=== PATIENT | male | born 1935 | race Caucasian/White ===

== ENCOUNTER 2018-10-11 10:24 | Inpatient (IN) | payer MEDICARE | END 2018-10-18 14:10 | LOC: MED 3N 10-14 17:40 → SSTAY O 10:24 → ICU 2S 10-12 10:15 → MED 3N 14:44 | PROC: 0210093 Bypass Coronary Artery, One Artery from Coronary Artery with Autologous Venous Tissue, Open Approach (ICD-10-PCS; principal; 2018-10-12 07:02) | PROC: 02RF08Z Replacement of Aortic Valve with Zooplastic Tissue, Open Approach (ICD-10-PCS; 2018-10-12 07:02) | PROC: 4A023N7 Measurement of Cardiac Sampling and Pressure, Left Heart, Percutaneous Approach (ICD-10-PCS; 2018-10-12 07:02) | PROC: 02100Z9 Bypass Coronary Artery, One Artery from Left Internal Mammary, Open Approach (ICD-10-PCS; 2018-10-12 07:02) | PROC: 06BP4ZZ Excision of Right Saphenous Vein, Percutaneous Endoscopic Approach (ICD-10-PCS; 2018-10-12 07:02) | PROC: B246ZZ4 Ultrasonography of Right and Left Heart, Transesophageal (ICD-10-PCS; 2018-10-12 07:02) | PROC: 02L70ZK Occlusion of Left Atrial Appendage, Open Approach (ICD-10-PCS; 2018-10-12 07:02) | PROC: B215YZZ Fluoroscopy of Left Heart using Other Contrast (ICD-10-PCS; 2018-10-12 07:02) | PROC: B211YZZ Fluoroscopy of Multiple Coronary Arteries using Other Contrast (ICD-10-PCS; 2018-10-12 07:02) | PROC: B218YZZ Fluoroscopy of Left Internal Mammary Bypass Graft using Other Contrast (ICD-10-PCS; 2018-10-12 07:02) | PROC: 5A1221Z Performance of Cardiac Output, Continuous (ICD-10-PCS; 2018-10-12 07:02) | DX: I25.10 Atherosclerotic heart disease of native coronary artery without angina pectoris (principal); I50.33 Acute on chronic diastolic (congestive) heart failure; I13.0 Hypertensive heart and chronic kidney disease with heart failure and stage 1 through stage 4 chronic kidney disease, or unspecified chronic kidney disease; I50.30 Unspecified diastolic (congestive) heart failure; I35.0 Nonrheumatic aortic (valve) stenosis ==

== ENCOUNTER 2020-04-11 08:23 | Outpatient (CLI) | payer MEDICARE ==
[~2020-04-11] VITALS: Ht 182.9 cm; Wt 93.0 kg
[~2020-04-11 08:23] MED LIST: AMLO10TA PO; BENA10TA74 PO; COU3T PO; FURO-150 PO; FURO20TA4 PO; NITR0.4T51 SL; POTA-82 PO; SIMV10TA2 PO; TERA2CAP4 PO; WARF1TAB83 PO
[2020-04-11 09:15] LABS: ABG BASE EXCESS -1.9 mmol/L (-2.0-2.0); ABG HCO3 21.9 mmol/L (22.0-26.0); ABG OXYGEN SATURATION 97.4 % (94-97); ABG PCO2 (T) 34.9 mmHg (35.0-48.0); ALLEN'S TEST POSITIVE; FCOHb 0.2 % (0.0-3.9); FMetHb 0.2 % (0.0-1.5); TOTAL HEMOGLOBIN 14.2 G/dl (14.0-18.0)
[2020-04-11] MEDS ORDERED: albuterol 2.5 MG/3 ML nebule NEB ONE (09:35)
== END 2020-04-11 23:59 | disposition home or self-care (01) ==
LOC: RT 08:23
PROVIDERS: ATTEND Internal Medicine Cardiovascular Disease
DX: J44.9 Chronic obstructive pulmonary disease, unspecified (principal); R06.02 Shortness of breath
CPT/HCPCS: 36600; 82803; 85018; 94060; 94727; 94729; 94760

== ENCOUNTER 2021-05-13 12:55 | Emergency (ER) | payer OTHER, MEDICARE ==
[~2021-05-13] VITALS: Ht 190.5 cm; Wt 96.7 kg
[2021-05-13 13:44] VITALS: BP 157/69
[2021-05-13] MEDS ORDERED: WALKERFR (21:11)
[2021-05-13] MEDS ORDERED: HYDR-3965 PO (22:15)
[2021-05-13] MEDS ORDERED: ONDA4TAB6 PO (22:15)
[2021-05-13] MEDS ORDERED: morphine 4 MG/ML inj SYRINge IM ONE (22:40)
[2021-05-13] MEDS ORDERED: ondansetron 4mg rapidly disintigrating tab PO ONE (22:40)
== END 2021-05-14 04:06 | disposition home or self-care (01) ==
LOC: ER 12:55
DX: S82.831A Other fracture of upper and lower end of right fibula, initial encounter for closed fracture (principal); E78.00 Pure hypercholesterolemia, unspecified; I10 Essential (primary) hypertension; E11.9 Type 2 diabetes mellitus without complications; Z79.01 Long term (current) use of anticoagulants; Z79.899 Other long term (current) drug therapy; Z88.8 Allergy status to other drugs, medicaments and biological substances; W10.9XXA Fall (on) (from) unspecified stairs and steps, initial encounter; Y93.89 Activity, other specified; Y92.89 Other specified places as the place of occurrence of the external cause; Y99.8 Other external cause status
CPT/HCPCS: 29515; 73590; 96372; 99283; J2270

== ENCOUNTER 2023-01-26 05:17 | Emergency (ER) | payer OTHER, MEDICARE ==
[~2023-01-26] VITALS: Ht 182.9 cm; Wt 88.6 kg
[~2023-01-26 05:17] MED LIST changes: +ONDA4TAB6 PO; +POTA-366 PO; -POTA-82 PO; +SIMV-341 PO; -SIMV10TA2 PO; +WALKERFR
[2023-01-26] MEDS ORDERED: ondansetron 4mg rapidly disintigrating tab PO ONE (06:10)
[2023-01-26] MEDS ORDERED: oxyCODONE/APAP 5-325mg tablet PO ONE (06:10)
[2023-01-26 06:23] VITALS: BP 139/76
[2023-01-26] MEDS ORDERED: OXYC-145 PO (08:12)
== END 2023-01-26 08:31 | disposition home or self-care (01) ==
LOC: ER 05:17
DX: M50.320 Other cervical disc degeneration, mid-cervical region, unspecified level (principal); E78.00 Pure hypercholesterolemia, unspecified; I10 Essential (primary) hypertension; E11.9 Type 2 diabetes mellitus without complications; Z88.5 Allergy status to narcotic agent; Z88.6 Allergy status to analgesic agent
CPT/HCPCS: 72125; 99284; L0172